=== PATIENT | male | born 1995 | race Caucasian/White ===

== ENCOUNTER 2024-12-03 13:18 | Emergency (ER) | payer SELFPAY ==
[2024-12-03 13:31] VITALS: BP 154/79; PULSE 71; RESP 18; TEMP 36.6; O2SAT 97; BMI 33.9
--- NOTE | 2024-12-03 13:39 | EXP.UTC ---
Discharge Plan Disposition Patient Disposition: Home, Self-Care Condition: Good Prescriptions Prescriptions: New amoxicillin 500 mg tablet 500 mg PO BID 10 Days Qty: 20 0RF Rx Instructions: Start tomorrow had injection today Referrals Follow up/Referrals: Provider,Referral, [Primary Care Provider] - See instructions Activity Restrictions/Add. Instructions Additional Instructions/Restrictions: Antibiotics as ordered Follow-up with dentist as soon as possible Tylenol or ibuprofen as needed for pain If symptoms worsen or do not improve Clinical Impressions Clinical Impression: Dental abscess Instructions Patient Instructions: Tooth Abscess Print Language Print Language: Prydeinig Discharge ED [facility] [facility] [place] General Stated complaint: Pain R top teeth/chipped tooth Mode of Arrival: Ambulatory Source of Information: Patient Time Seen by Provider: 12/03/24 13:34 Description of Symptoms (Recalled from Triage Doc. by RN): RIGHT LOWER MOLAR CHIPPED AND IS CAUSING HIM PAIN HEENT Symptoms (Recalled from RN notes): Yes Resp Symptoms (Recalled from RN notes): No Skin Symptoms (Recalled from RN notes): No MS Symptoms (Recalled from RN notes): No Functional Status (Recalled from RN notes): WNL History of Present Illness Provider Complaint: 29-year-old male presents for fracture he upper back tooth around 3 AM having pain after biting down on a piece of hard candy Related Data Previous Rx's ?Medication ?Instructions ?Recorded amoxicillin 500 mg tablet 500 mg PO BID 10 days #20 tabs 12/03/24 Allergies Allergy/AdvReac Type Severity Reaction Status Date / Time No Known Allergies Allergy Verified 12/03/24 13:33 Worker's Comp Is this a Worker's Comp case?: No [facility] Disclaimer: The information contained in this section may have been updated after the patient was seen, as this information can be updated by other users. Medical History (Reviewed 12/03/24 @ 13:40 by Brock Aldrich ([facility]), CENTRAL SCHEDULER) Anxiety Social History Smoking Status: Unknown if ever smoked alcohol intake: never current occupational status: employed Travel in the last 8 weeks: None ROS Obtained: Yes Systems reviewed as appropriate & no additional complaints except as documented Physical Exam General General appearance: alert and in no apparent distress Eye Eye exam: Present normal appearance ENT ENT exam: Present mucous membranes moist and TM's normal bilaterally Expanded ENT Exam Teeth exam: Present dental caries and fractured tooth # Teeth numbered Image: 1. Fractured and Dental Tenderness Respiratory Respiratory exam: Present normal lung sounds bilaterally Cardiovascular Cardiovascular exam: Present regular rate and normal rhythm Neurological Exam Neurological exam: Present alert and oriented X3 Skin Skin exam: Present warm and intact Medical Decision Making Medical Records Medical records reviewed: Yes I reviewed the patient's medical records. Screening: Per USPSTF and CDC recommendations, given the prevalence of disease in our region, it is our hospital?s policy to screen for HIV and viral Hepatitis for all patients aged 18 and over and those with ongoing risk factors. Bogdan Inquiry Pt receiving controlled substance: No Vital Signs: 12/03/24 13:31 Temperature 97.8 F Temperature Source Oral Pulse Rate [Left Brachial] 71 Respiratory Rate 18 Blood Pressure [Left Arm] 154/79 H Blood Pressure Mean [Left Arm] 104 02 Sat by Pulse Oximetry 97
[2024-12-03] MEDS: LIDOCAINE 2% VISCOUS SOL 15ML UDC 15 ML PO (13:43)
[2024-12-03] MEDS: cefTRIAXone 1GM VIAL 1 GM IM (13:43)
[2024-12-03] MEDS: LIDOCAINE 1% 5ML PF VIAL IM (13:43)
[2024-12-03 13:47] VITALS: BP 154/79; PULSE 71; RESP 18; TEMP 36.6
== END 2024-12-03 13:58 | disposition home or self-care (01) ==
PROVIDERS: Emergency Provider Nurse Practitioner Family
DX: K04.7 Periapical abscess without sinus (principal)
CPT/HCPCS: 96372; 99213; G0381; J0696